=== PATIENT | male | born 1960 | race Caucasian/White ===

== ENCOUNTER 2021-12-21 13:37 | Emergency (ER) | payer OTHER ==
[2021-12-21 15:45] LABS: HEMOGLOBIN 14.9 gm/dl (14.0-17.5); RED BLOOD COUNT 4.93 M/UL (4.20-5.50); WHITE BLOOD COUNT 8.2 K/UL (4.5-11.0)
[2021-12-21 16:12] LABS: BUN/CREATININE RATIO 35 (0-10)
== END 2021-12-21 19:46 | disposition admitted as inpatient to this hospital (09) ==
LOC: ER1 13:37
PROVIDERS: Emergency Medicine
DX: J38.6 Stenosis of larynx (principal); I25.2 Old myocardial infarction; Z85.038 Personal history of other malignant neoplasm of large intestine; Z20.822 Contact with and (suspected) exposure to COVID-19
CPT/HCPCS: 71045; 80053; 82550; 82553; 83880; 84484; 85025; 93005; 96374; 99285; J1100; U0002

== ENCOUNTER 2022-02-21 03:53 | Emergency (ER) | payer OTHER | END 2022-02-21 05:45 | disposition home or self-care (01) | LOC: ER1 03:53 | DX: J95.03 Malfunction of tracheostomy stoma (principal); C32.9 Malignant neoplasm of larynx, unspecified; Z88.0 Allergy status to penicillin; Z88.6 Allergy status to analgesic agent | CPT/HCPCS: 94760; 99283 ==

== ENCOUNTER 2022-02-22 20:38 | Emergency (ER) | payer OTHER | END 2022-02-22 21:14 | disposition home or self-care (01) | LOC: ER1 20:38 | DX: Z43.0 Encounter for attention to tracheostomy (principal); E11.9 Type 2 diabetes mellitus without complications; I10 Essential (primary) hypertension; J44.9 Chronic obstructive pulmonary disease, unspecified; Z85.818 Personal history of malignant neoplasm of other sites of lip, oral cavity, and pharynx | CPT/HCPCS: 99283 ==

== ENCOUNTER 2022-02-23 18:33 | Emergency (ER) | payer OTHER | END 2022-02-23 19:18 | disposition home or self-care (01) | LOC: ER1 18:33 | DX: R06.02 Shortness of breath (principal) | CPT/HCPCS: 99281 ==